=== PATIENT | female | born 1950 | race Caucasian/White ===

== ENCOUNTER → 2016-03-08 | Day surgery (SDC) | payer MEDICARE ==
--- NOTE | 2016-02-11 07:17 | HP ---
HISTORY AND PHYSICAL: DATE OF ADMISSION: 03/08/16 - She will be coming in to [facility] 03/08/16 for right knee arthroscopic surgery. CHIEF COMPLAINT: Right knee lateral pain and some catching and popping. HISTORY OF PRESENT ILLNESS: The patient this year has had 6 weeks of problems without a specific injury with development of right knee lateral pain, difficulty with bending, kneeling, and stairs and pivoting. She has not been improving and an MRI scan of this knee that was done in October 2013 showed abnormality of the lateral meniscus. Recent knee radiographs are satisfactory. Because of the previous problems and the current problems and no improvement, we have recommended arthroscopic surgery of this knee. The right knee was injected with Marcaine and Depo-Medrol 80 mg on 02/10/16 and prescription for tramadol was given 50 mg. PAST SURGICAL HISTORY: She has had past surgical care for tonsillectomy, tubal ligation, hysterectomy, ovariectomy, right shoulder rotator cuff, vaginal prolapse, and a left hip replacement in 2011. MEDICATIONS: Her daily meds include: 1. Pravastatin 30 mg. 2. Meloxicam 15 mg. 3. Zyrtec 10 mg. 4. Citrucel once a day. 5. Vitamins, minerals, and acidophilus. 6. Melatonin 3 mg once a day. ALLERGIES: The patient is allergic to LORTAB and PERCOCET. REVIEW OF SYSTEMS: No bleeding tendencies. She is able to walk up 2 flights of stairs without chest pain, without shortness of breath. There is no history of heart attack or chest pain. No history of DVT or pulmonary embolism. PHYSICAL EXAMINATION GENERAL: Well-nourished, well-developed, not acutely distressed. HEENT: The head is NC/AT. Cranial nerves are grossly intact. LUNGS: Clear bilaterally. HEART: Regular. S1, S2 normal. No murmurs or gallops. ABDOMEN: Soft, nontender. There is no organomegaly. EXTREMITIES: The right knee shows posterior tibial pulses 2+. Right knee tender on the lateral joint line. Nontender anteriorly, medially, and posteriorly. MCL and LCL are stable. The Niall and posterior drawer are normal . IMPRESSION: Right knee lateral meniscal tear. PLANS: Right knee arthroscopic surgery. Goals, risks, and complications were reviewed with her and her questions were answered. [id number]/[facility] #: [id number] CHAZ
[~2016-03-08] MED LIST: Buffered Lidocaine 1% SYR 3ML* 3 ML/SYR SYRINGE ONE; Bupivacaine 0.5% W/EPI SDV* 30 ML VIAL ONE; Dexamethasone IV* 4 MG/ML 1 ML (4 MG) ONE; EPHEDrine (Pressors)* 50 MG/ML VIAL ONE; HYDROmorphone INJ* 1 MG/ML CARPUJECT SYRINGE IV PRN; Ibuprofen TAB* 600 MG PO PRN; Lidocaine 2% MPF* 2 ML VIAL ONE; Metoclopramide IV* 5 MG/ML 2 ML VIAL IV PRN; Midazolam* 1 MG/ML 2 ML VIAL (2 MG) ONE; Ondansetron INJ* 2 MG/ML VIAL ONE; Propofol* 10 MG/ML 20 ML BTL IV PUSH ONE; Scopolamine 1.5 mg* PATCH TRANSDERM PRN; ceFAZolin 2 GM PREMIX (*) 2 GM/50 ML BAG IVPB ONE; fentaNYL* 50 MCG/ML 2 ML VIAL (100 MCG VIAL) ONE
[2016-03-08 13:17] VITALS: BP 129/74
--- NOTE | 2016-03-09 01:55 | OP ---
DATE OF OPERATION: 03/08/16 - SDS DATE OF : [birth year] - AGE: 66. SURGICAL CARE: Right knee. SURGEON: Florencio Matias MD SPOOL FIXER: KELECHI Cuevas ANESTHESIOLOGIST: Dr. Laurence Fiore. ANESTHESIA: LMA general. PRE-OP DIAGNOSIS: Right knee lateral meniscal tear. POST-OP DIAGNOSIS: Right knee lateral meniscal tear and an anteromedial plica. OPERATIVE PROCEDURE: Right knee partial lateral meniscectomy, arthroscopic and removal of plica. COMPLICATIONS: There were no complications. DRAINS: There were no drains. Tourniquet control was utilized on the right leg and the condition stable to the recovery room. INDICATIONS: Persistent anterior and lateral knee pain with mechanical symptoms as well and an unknown lateral meniscal tear. DESCRIPTION OF PROCEDURE: The patient was brought to the operating room and placed on the operating room table in a supine position. Following the administration of the anesthetic, the right proximal thigh was wrapped with a tourniquet and the right leg was prepped from the tourniquet to the foot and then draped free and carefully sealed off in the usual fashion for arthroscopic surgery of the right knee. The right leg, ankle, and foot were sealed with an impermeable drape with an Ioban drape wrapped around the calf at the top of that. After prepping, draping, and sealing off, we did our universal protocol time-out confirming Nathaly Noriega and a plan for right knee arthroscopic surgery. We all agreed and we proceeded. Her leg and foot were exsanguinated. The tourniquet and the thigh elevated to 275. The right knee was set up for arthroscopy with the arthroscope lateral to the patellar tendon, probe and operating instruments medial to the patellar tendon and an inflow catheter superomedial to the patella. To complete the surgical care on the lateral meniscus, the portals were interchanged and we worked with instruments from the lateral patellar tendon portal and from the medial patellar tendon portal. The survey of the joint showed that there was some debris in the joint as we irrigated it out. The patellofemoral joint was in quite good condition. There was anterior synovitis that was involved with an anteromedial plica, thickened fibrotic plica with flaps and once this was evident, this was completely excised with a shaver. The medial and lateral gutters were clean. The lateral meniscus had a little fraying at the lateral periphery. The ACL was in satisfactory condition underneath the ligamentum mucosum and the ligamentum mucosum was excised in the course of this surgery. The medial femoral condyle, medial meniscus, medial tibial plateau are all in quite good condition. The lateral meniscus was torn up diffusely on its inner rim. Posteriorly, there was a large posterior flap, so once this pathology was event, then I began by using the shaver from the anteromedial portal, which began the clean-up of the inner tearing mid and anteriorly and the posterior flap. The flap was mainly removed with large baskets from the anterolateral portal. Once the posterior flap was removed, then we once again ran the shaver along the mid and anterior meniscus making sure that any loose flaps were gone. Then as noted, the above noted plica was also excised. Once the surgical care was complete and final photographs were obtained, the tourniquet was deflated, the knee was irrigated with another 3 to 4 L of saline irrigation solution, then emptied, then instilled in Marcaine 0.25%, 28 to 30 mL. The skin portals were closed with interrupted 3-0 Surgipro and a dressing applied after washing and drying with Betadine soaked release, sterile gauze, sterile Webril, cryotherapy cuff, ABD pads and then a 6-inch Artie bandage loosely applied. The patient was returned to the recovery room in stable and satisfactory condition having tolerated the procedure very well. CC: [facility], Ilana Abdi NP* [id number]/[facility] #: [id number] MTDD
== END | disposition home or self-care (01) ==
LOC: OR 07:54
PROVIDERS: ATTEND Orthopaedic Surgery
DX: M23.200 Derangement of unspecified lateral meniscus due to old tear or injury, right knee (principal); M65.9 Synovitis and tenosynovitis, unspecified; M65.861 Other synovitis and tenosynovitis, right lower leg
CPT/HCPCS: 88304; J0690; J1100; J2250; J2405; J2704; J3010

== ENCOUNTER 2016-12-22 07:25 | Day surgery (SDC) | payer MEDICARE ==
[~2016-12-22 07:25] MED LIST changes: +Buffered Lidocaine 0.9% SYRIN* 5 ML/SYR SYRINGE INTRADERM ONE; -Buffered Lidocaine 1% SYR 3ML* 3 ML/SYR SYRINGE ONE; -Bupivacaine 0.5% W/EPI SDV* 30 ML VIAL ONE; -Dexamethasone IV* 4 MG/ML 1 ML (4 MG) ONE; -EPHEDrine (Pressors)* 50 MG/ML VIAL ONE; -HYDROmorphone INJ* 1 MG/ML CARPUJECT SYRINGE IV PRN; -Ibuprofen TAB* 600 MG PO PRN; -Lidocaine 2% MPF* 2 ML VIAL ONE; -Metoclopramide IV* 5 MG/ML 2 ML VIAL IV PRN; -Midazolam* 1 MG/ML 2 ML VIAL (2 MG) ONE; -Ondansetron INJ* 2 MG/ML VIAL ONE; -Propofol* 10 MG/ML 20 ML BTL IV PUSH ONE; -Scopolamine 1.5 mg* PATCH TRANSDERM PRN; -ceFAZolin 2 GM PREMIX (*) 2 GM/50 ML BAG IVPB ONE; -fentaNYL* 50 MCG/ML 2 ML VIAL (100 MCG VIAL) ONE
[2016-12-22] MEDS ORDERED: ceFAZolin 2 GM PREMIX (*) 2 GM/50 ML BAG IVPB ONE (07:42)
[2016-12-22] MEDS ORDERED: BSS OPTH.SOL* BTL ONE (09:17)
[2016-12-22] MEDS ORDERED: Lidocaine 1% MPF wEPI 200,000* 30 ML SDV ONE (09:17)
[2016-12-22] MEDS ORDERED: Methylene Blue 0.5 %* 50 MG/10 ML AMP IV ONE (09:18)
[2016-12-22] MEDS ORDERED: Mineral Oil Sterile, TOPICAL* 25 ML BTL ONE (09:19)
[2016-12-22] MEDS ORDERED: fentaNYL* 50 MCG/ML 2 ML VIAL (100 MCG VIAL) ONE (09:25)
[2016-12-22] MEDS ORDERED: Midazolam* 1 MG/ML 2 ML VIAL (2 MG) ONE (09:25)
[2016-12-22] MEDS ORDERED: Lidocaine 2% PF * 5 ML VIAL ONE (09:55)
[2016-12-22] MEDS ORDERED: Propofol* 10 MG/ML 20 ML BTL IV PUSH ONE (09:55)
[2016-12-22 11:27] VITALS: BP 114/62
== END 2016-12-22 11:23 | disposition home or self-care (01) ==
LOC: OREAST 07:25
PROVIDERS: ATTEND Plastic Surgery
DX: C44.311 Basal cell carcinoma of skin of nose (principal); E78.00 Pure hypercholesterolemia, unspecified; Z88.5 Allergy status to narcotic agent; Z80.8 Family history of malignant neoplasm of other organs or systems
CPT/HCPCS: A9270-GY; J0690; J2001; J2250; J2704; J3010

== ENCOUNTER 2019-12-17 05:52 | Inpatient (IN) ==
[2019-12-17] MEDS ORDERED: Lactated Ringers 1000 ml BAG 1,000 ML IV SCH (06:00)
[2019-12-17] MEDS ORDERED: Buffered Lidocaine 1% SYRIN 1 ml INTRADERM ONE (06:00)
[2019-12-17] MEDS ORDERED: Famotidine IV 10 MG/ML 2 ml VIAL (20 mg) IV ONE (06:00)
[2019-12-17] MEDS ORDERED: Sodium Citrate/Citric Acid LIQ 15 ML UDC PO ONE (06:00)
[2019-12-17] MEDS ORDERED: Famotidine IV 10 MG/ML 2 ml VIAL (20 mg) ONE (06:17)
[2019-12-17] MEDS ORDERED: diPHENhydraMINE IV 50 MG/ML 1 ml VIAL (BENADRYL) ONE ×2 (06:17→10:51)
[2019-12-17] MEDS ORDERED: ceFAZolin 2 GM PREMIX 2 GM/50 ML BAG ONE (06:18)
[2019-12-17] MEDS ORDERED: EPHEDrine (Pressors) 50 MG/ML VIAL ONE (06:29)
[2019-12-17] MEDS ORDERED: Bupivacaine 0.5% SDV PF 30ML VIAL ONE ×2 (06:29→07:26)
[2019-12-17] MEDS ORDERED: Midazolam 5 mg/5 ml VIAL 1 mg/ml 5 ml VIAL (5 mg) ONE (06:29)
[2019-12-17] MEDS ORDERED: Sterile Water for Inj 0 ML ONE (06:29)
[2019-12-17] MEDS ORDERED: Phenylephrine 40 mcg/mL 10mL (400mcg) SYRINGE ONE ×2 (06:29→06:36)
[2019-12-17] MEDS: diPHENhydraMINE IV 50 MG/ML 1 ml VIAL (BENADRYL) IV ONE ×2 (06:31→10:55)
[2019-12-17] MEDS ORDERED: Sodium Citrate/Citric Acid LIQ 15 ML UDC ONE (06:43)
[2019-12-17] MEDS ORDERED: Lidocaine 1% MPF 5 ML VIAL ONE (07:01)
[2019-12-17] MEDS ORDERED: ROPIVACAINE 5 MG/ML 30 ML BTL (0.5%) ONE (07:01)
[2019-12-17] MEDS ORDERED: Lidocaine 1% w EPI 1:200,000 SDV 30 ML VIAL ONE (07:26)
[2019-12-17] MEDS ORDERED: Phenylephrine IV 10 MG/ML 1 ml VIAL ONE (08:08)
[2019-12-17] MEDS ORDERED: Glycopyrrolate IV 0.2 MG/ML 1 ML VIAL ONE (08:36)
[2019-12-17] MEDS ORDERED: Ondansetron 4 mg VIAL 2 MG/ML 2 ml VIAL IV PRN ×2 (09:03→10:43)
[2019-12-17] MEDS ORDERED: HYDROmorphone 1 MG/1 ML SYRINGE IV PRN (09:03)
[2019-12-17] MEDS ORDERED: Naloxone 0.4 mg VIAL 0.4 mg/ml 1 ml VIAL IV PRN (09:03)
[2019-12-17] MEDS ORDERED: Propofol 10 MG/ML 20 ML BTL ONE (10:34)
[2019-12-17] MEDS ORDERED: Magnesium Hydroxide LIQ 30 ML UDC PO PRN (10:43)
[2019-12-17] MEDS ORDERED: Ondansetron ODT 4 mg TAB 4 MG TAB PO PRN (10:43)
[2019-12-17] MEDS ORDERED: Lactulose 30 ml UDC PO PRN (10:43)
[2019-12-17] MEDS ORDERED: diPHENhydraMINE 25 mg TAB PO PRN (10:43)
[2019-12-17] MEDS ORDERED: diPHENhydraMINE IV 50 MG/ML 1 ml VIAL (BENADRYL) IV PRN (10:43)
[2019-12-17] MEDS ORDERED: Morphine 2 MG/ML SYRINGE IV PRN (10:43)
[2019-12-17] MEDS ORDERED: fentaNYL 100 mcg/2 ml 50 MCG/ML VIAL ONE (10:51)
[2019-12-17] MEDS ORDERED: Ondansetron 4 mg VIAL 2 MG/ML 2 ml VIAL ONE (10:51)
[2019-12-17] MEDS: fentaNYL 100 mcg/2 ml 50 MCG/ML VIAL IV PRN ×2 (10:55→12:03)
[2019-12-17] MEDS ORDERED: HYDROmorphone 0.5 MG/0.5 ML SYRINGE IV PRN (12:51)
[2019-12-17] MEDS: Lactated Ringers 1000 ml BAG 1,000 ML IV SCH ×2 (13:10→23:10)
[2019-12-17] MEDS: ceFAZolin 1 GM ADVAN 1 GM in NS 0.9% 50 ML 50 ML IVPB SCH (15:56)
[2019-12-17] MEDS ORDERED: METHYLCELLULOSE 500 MG PO SCH (21:00)
[2019-12-17] MEDS: Magnesium Hydroxide LIQ 30 ML UDC PO SCH (21:21)
[2019-12-18] MEDS: ceFAZolin 1 GM ADVAN 1 GM in NS 0.9% 50 ML 50 ML IVPB SCH ×2 (00:10→07:56)
[2019-12-18 06:13] LABS: Hematocrit 29 % (35-47); Hemoglobin 9.9 g/dL (12.0-16.0); Mean Platelet Volume 7.5 fL (7.4-10.4); Platelet Count 269 10^3/uL (150-450)
[2019-12-18 06:35] LABS: BUN/Creatinine Ratio 24.7 (8-20); Calcium 8.7 mg/dL (8.6-10.3); EGFR African American 72.3 (>60); EGFR Non-African American 59.8 (>60); Potassium 4.7 mmol/L (3.5-5.0)
[2019-12-18] MEDS ORDERED: Vitamin THERAPEUTIC TAB PO SCH (09:00)
[2019-12-18] MEDS: Magnesium Hydroxide LIQ 30 ML UDC PO SCH (09:13)
[2019-12-18 11:39] VITALS: BP 130/74
== END 2019-12-18 12:49 | disposition home or self-care (01) | DRG 470 ==
LOC: AA 05:52 → SSU 10:43
PROVIDERS: ADMIT Orthopaedic Surgery; ATTEND Orthopaedic Surgery